=== PATIENT | male | born 1955 | race Caucasian/White ===

== ENCOUNTER → 2018-06-26 12:51 | Outpatient (CLI) | payer OTHER, SELFPAY ==
[2018-06-26 13:08] LABS: Abs Immature Grans 0.02 k/cumm (0.0-0.09); Absolute Basophil Count 0.03 k/cumm (0.0-0.2); Absolute Lymphocyte Count 1.34 k/cumm (1.2-3.4); Absolute Monocyte Count 0.72 k/cumm (0.11-0.7); Absolute Neutrophil Count 7.53 k/cumm (1.2-6.7); Basophils % 0.3; HCT 40.3 % (40.0-50.0); HGB 13.1 g/dL (13.5-17.5); Immature Grans % 0.2; Lymphocytes % 13.6; Mean Corp. HGB Concentration 32.5 g/dL (32.0-36.0); Mean Corpuscular Hemoglobin 27.1 pg (27.0-33.0); Mean Corpuscular Volume 83.3 fL (80-95); Monocytes % 7.3; Neutrophils % 76.6; Platelet Count 194 x1000/uL (130-400); RBC 4.84 m/cumm (4.50-6.00); RBC Distribution Width 16.3 % (11.8-14.1); White Blood Cell Count 9.84 k/cumm (4.4-10.8)
[2018-06-26 13:30] LABS: ALT 28 U/L (12-78); AST 15 U/L (15-37); Albumin 3.1 g/dL (3.4-5.0); Alkaline Phosphatase 69 U/L (46-116); Anion Gap 9.7 mmol/L (3-11); BUN 9 mg/dL (7-18); Bilirubin, Total 0.4 mg/dL (0.2-1.0); CO2 26.3 mmol/L (21.0-32.0); CREATININE 0.96 mg/dL (0.70-1.30); Calcium 8.7 mg/dL (8.5-10.1); Chloride 101 mmol/L (98-107); Glucose 115 mg/dL (70-100); Potassium 4.1 mmol/L (3.5-5.1); Sodium 137 mmol/L (136-145); T4 9.1 ug/dL (4.5-12.5); TSH 0.06 uIU/mL (0.358-3.74); Total Protein 7.3 g/dL (6.4-8.2)
== END ==
PROVIDERS: PCP Internal Medicine; Visit Provider Internal Medicine Medical Oncology
DX: E03.2 Hypothyroidism due to medicaments and other exogenous substances (principal)
CPT/HCPCS: 36415; 80053; 84436; 84443; 85025

== ENCOUNTER → 2018-07-10 12:17 | Outpatient (CLI) | payer OTHER, SELFPAY ==
[2018-07-10 12:50] LABS: Abs Immature Grans 0.02 k/cumm (0.0-0.09); Absolute Basophil Count 0.02 k/cumm (0.0-0.2); Absolute Eosinophil Count 0.21 k/cumm (0.0-0.7); Absolute Lymphocyte Count 1.48 k/cumm (1.2-3.4); Absolute Monocyte Count 0.83 k/cumm (0.11-0.7); Absolute Neutrophil Count 6.89 k/cumm (1.2-6.7); Basophils % 0.2; Eosinophils % 2.2; HGB 13.1 g/dL (13.5-17.5); Immature Grans % 0.2; Lymphocytes % 15.7; Mean Corpuscular Hemoglobin 26.3 pg (27.0-33.0); Mean Corpuscular Volume 82.3 fL (80-95); Mean Platelet Volume 9.4 fL (8.0-11.0); Monocytes % 8.8; Neutrophils % 72.9; Platelet Count 237 x1000/uL (130-400); RBC 4.98 m/cumm (4.50-6.00); White Blood Cell Count 9.45 k/cumm (4.4-10.8)
[2018-07-10 13:12] LABS: ALT 27 U/L (12-78); AST 16 U/L (15-37); Albumin 3.1 g/dL (3.4-5.0); Alkaline Phosphatase 68 U/L (46-116); Anion Gap 3.3 mmol/L (3-11); BUN 8 mg/dL (7-18); Bilirubin, Total 0.4 mg/dL (0.2-1.0); CO2 29.7 mmol/L (21.0-32.0); CREATININE 0.75 mg/dL (0.70-1.30); Calcium 8.6 mg/dL (8.5-10.1); Chloride 102 mmol/L (98-107); Glucose 120 mg/dL (70-100); Potassium 4.4 mmol/L (3.5-5.1); Sodium 135 mmol/L (136-145); TSH 0.05 uIU/mL (0.358-3.74); Total Protein 7.3 g/dL (6.4-8.2)
[2018-07-10 13:25] LABS: T4 9.2 ug/dL (4.5-12.5)
== END ==
PROVIDERS: PCP Internal Medicine; Visit Provider Internal Medicine Medical Oncology
DX: C34.02 Malignant neoplasm of left main bronchus (principal)
CPT/HCPCS: 36415; 80053; 84436; 84443; 85025

== ENCOUNTER 2018-07-24 08:46 | Outpatient (CLI) | payer OTHER, SELFPAY ==
[2018-07-24 09:51] LABS: Abs Immature Grans 0.03 k/cumm (0.0-0.09); Absolute Basophil Count 0.04 k/cumm (0.0-0.2); Absolute Eosinophil Count 0.17 k/cumm (0.0-0.7); Absolute Lymphocyte Count 1.26 k/cumm (1.2-3.4); Absolute Monocyte Count 0.73 k/cumm (0.11-0.7); Basophils % 0.4; Eosinophils % 1.7; HCT 41.7 % (40.0-50.0); HGB 13.6 g/dL (13.5-17.5); Immature Grans % 0.3; Lymphocytes % 12.3; Mean Corp. HGB Concentration 32.6 g/dL (32.0-36.0); Mean Corpuscular Hemoglobin 26.3 pg (27.0-33.0); Mean Corpuscular Volume 80.7 fL (80-95); Mean Platelet Volume 9.4 fL (8.0-11.0); Monocytes % 7.1; Neutrophils % 78.2; Platelet Count 206 x1000/uL (130-400); RBC 5.17 m/cumm (4.50-6.00); RBC Distribution Width 16.7 % (11.8-14.1); White Blood Cell Count 10.23 k/cumm (4.4-10.8)
[2018-07-24 10:25] LABS: ALT 26 U/L (12-78); AST 18 U/L (15-37); Albumin 3.2 g/dL (3.4-5.0); Alkaline Phosphatase 67 U/L (46-116); Anion Gap 6.4 mmol/L (3-11); BUN 7 mg/dL (7-18); Bilirubin, Total 0.4 mg/dL (0.2-1.0); CO2 28.6 mmol/L (21.0-32.0); CREATININE 0.91 mg/dL (0.70-1.30); Calcium 8.6 mg/dL (8.5-10.1); Chloride 99 mmol/L (98-107); Glucose 183 mg/dL (70-100); Potassium 4.1 mmol/L (3.5-5.1); Sodium 134 mmol/L (136-145); T4 7.9 ug/dL (4.5-12.5); TSH 0.16 uIU/mL (0.358-3.74); Total Protein 7.1 g/dL (6.4-8.2)
== END 2018-07-24 09:06 ==
PROVIDERS: PCP Internal Medicine; Visit Provider Internal Medicine Medical Oncology
DX: C34.92 Malignant neoplasm of unspecified part of left bronchus or lung (principal)
CPT/HCPCS: 36415; 80053; 84436; 84443; 85025

== ENCOUNTER 2018-08-07 11:16 | Outpatient (CLI) | payer OTHER, SELFPAY ==
[2018-08-07 12:08] LABS: Abs Immature Grans 0.01 k/cumm (0.0-0.09); Absolute Basophil Count 0.03 k/cumm (0.0-0.2); Absolute Eosinophil Count 0.26 k/cumm (0.0-0.7); Absolute Monocyte Count 0.85 k/cumm (0.11-0.7); Basophils % 0.3; Eosinophils % 2.3; HCT 39.3 % (40.0-50.0); HGB 12.8 g/dL (13.5-17.5); Immature Grans % 0.1; Lymphocytes % 10.5; Mean Corp. HGB Concentration 32.6 g/dL (32.0-36.0); Mean Corpuscular Hemoglobin 26.2 pg (27.0-33.0); Mean Corpuscular Volume 80.4 fL (80-95); Mean Platelet Volume 9.7 fL (8.0-11.0); Monocytes % 7.4; Neutrophils % 79.4; Platelet Count 204 x1000/uL (130-400); RBC 4.89 m/cumm (4.50-6.00); RBC Distribution Width 16.9 % (11.8-14.1); White Blood Cell Count 11.47 k/cumm (4.4-10.8)
[2018-08-07 12:09] LABS: Absolute Neutrophil Count 9.11 k/cumm (1.2-6.7)
[2018-08-07 12:33] LABS: ALT 27 U/L (12-78); AST 21 U/L (15-37); Albumin 3.2 g/dL (3.4-5.0); Alkaline Phosphatase 62 U/L (46-116); Anion Gap 8.5 mmol/L (3-11); BUN 8 mg/dL (7-18); Bilirubin, Total 0.5 mg/dL (0.2-1.0); CO2 29.5 mmol/L (21.0-32.0); CREATININE 0.88 mg/dL (0.70-1.30); Calcium 9.2 mg/dL (8.5-10.1); Chloride 97 mmol/L (98-107); Glucose 184 mg/dL (70-100); Potassium 4.2 mmol/L (3.5-5.1); Sodium 135 mmol/L (136-145); T4 7.8 ug/dL (4.5-12.5); TSH 0.22 uIU/mL (0.358-3.74); Total Protein 7.1 g/dL (6.4-8.2)
== END 2018-08-07 11:36 ==
PROVIDERS: PCP Internal Medicine; Visit Provider Internal Medicine Medical Oncology
DX: C34.02 Malignant neoplasm of left main bronchus (principal); E03.2 Hypothyroidism due to medicaments and other exogenous substances
CPT/HCPCS: 36415; 80053; 84436; 84443; 85025

== ENCOUNTER 2018-09-18 01:13 | Outpatient (RCR) | payer OTHER, SELFPAY ==
[2018-08-20] MEDS: Normal Saline Flush 10 ML SYR IVP (08:10)
[2018-08-20 08:30] LABS: Abs Immature Grans 0.01 k/cumm (0.0-0.09); Absolute Basophil Count 0.04 k/cumm (0.0-0.2); Absolute Eosinophil Count 0.21 k/cumm (0.0-0.7); Absolute Monocyte Count 0.69 k/cumm (0.11-0.7); Absolute Neutrophil Count 7.41 k/cumm (1.2-6.7); Basophils % 0.4; Eosinophils % 2.2; HCT 39.8 % (40.0-50.0); HGB 12.8 g/dL (13.5-17.5); Immature Grans % 0.1; Lymphocytes % 13.5; Mean Corp. HGB Concentration 32.2 g/dL (32.0-36.0); Mean Corpuscular Volume 80.7 fL (80-95); Mean Platelet Volume 9.6 fL (8.0-11.0); Monocytes % 7.1; Neutrophils % 76.7; Platelet Count 230 x1000/uL (130-400); RBC 4.93 m/cumm (4.50-6.00); RBC Distribution Width 17.9 % (11.8-14.1); White Blood Cell Count 9.66 k/cumm (4.4-10.8)
[2018-08-20 08:49] LABS: ALT 25 U/L (12-78); AST 18 U/L (15-37); Albumin 3.2 g/dL (3.4-5.0); Alkaline Phosphatase 67 U/L (46-116); Anion Gap 6.9 mmol/L (3-11); BUN 10 mg/dL (7-18); Bilirubin, Total 0.3 mg/dL (0.2-1.0); CO2 29.1 mmol/L (21.0-32.0); CREATININE 0.86 mg/dL (0.70-1.30); Calcium 8.2 mg/dL (8.5-10.1); Chloride 101 mmol/L (98-107); Glucose 133 mg/dL (70-100); Potassium 4.2 mmol/L (3.5-5.1); Sodium 137 mmol/L (136-145); T4 8.9 ug/dL (4.5-12.5); TSH 0.38 uIU/mL (0.358-3.74); Total Protein 7.1 g/dL (6.4-8.2)
[2018-09-03] MEDS: Normal Saline Flush 10 ML SYR IVP (08:50)
[2018-09-03 09:09] LABS: Abs Immature Grans 0.02 k/cumm (0.0-0.09); Absolute Basophil Count 0.04 k/cumm (0.0-0.2); Absolute Eosinophil Count 0.45 k/cumm (0.0-0.7); Absolute Lymphocyte Count 1.12 k/cumm (1.2-3.4); Absolute Monocyte Count 0.72 k/cumm (0.11-0.7); Absolute Neutrophil Count 6.53 k/cumm (1.2-6.7); Basophils % 0.5; Eosinophils % 5.1; HCT 38.2 % (40.0-50.0); HGB 12.3 g/dL (13.5-17.5); Immature Grans % 0.2; Lymphocytes % 12.6; Mean Corp. HGB Concentration 32.2 g/dL (32.0-36.0); Mean Corpuscular Hemoglobin 26.1 pg (27.0-33.0); Mean Corpuscular Volume 80.9 fL (80-95); Mean Platelet Volume 9.2 fL (8.0-11.0); Monocytes % 8.1; Neutrophils % 73.5; Platelet Count 231 x1000/uL (130-400); RBC 4.72 m/cumm (4.50-6.00); RBC Distribution Width 18.7 % (11.8-14.1); White Blood Cell Count 8.88 k/cumm (4.4-10.8)
[2018-09-03 09:34] LABS: ALT 29 U/L (12-78); AST 17 U/L (15-37); Albumin 3.1 g/dL (3.4-5.0); Alkaline Phosphatase 68 U/L (46-116); Anion Gap 7.3 mmol/L (3-11); BUN 10 mg/dL (7-18); Bilirubin, Total 0.2 mg/dL (0.2-1.0); CO2 30.7 mmol/L (21.0-32.0); CREATININE 0.88 mg/dL (0.70-1.30); Calcium 8.5 mg/dL (8.5-10.1); Chloride 103 mmol/L (98-107); Glucose 130 mg/dL (70-100); Potassium 4.2 mmol/L (3.5-5.1); Sodium 141 mmol/L (136-145); T4 9.4 ug/dL (4.5-12.5); TSH 1.48 uIU/mL (0.358-3.74)
[2018-09-18] MEDS: Normal Saline Flush 10 ML SYR IVP (12:48)
[2018-09-18 13:02] LABS: Abs Immature Grans 0.03 k/cumm (0.0-0.09); HCT 36.7 % (40.0-50.0); HGB 11.6 g/dL (13.5-17.5); Mean Corp. HGB Concentration 31.6 g/dL (32.0-36.0); Mean Corpuscular Hemoglobin 25.3 pg (27.0-33.0); Mean Platelet Volume 9.7 fL (8.0-11.0); Platelet Count 249 x1000/uL (130-400); RBC 4.59 m/cumm (4.50-6.00); RBC Distribution Width 19.3 % (11.8-14.1)
[2018-09-18 13:27] LABS: Absolute Eosinophil Count 1.45 k/cumm (0.0-0.7); Absolute Lymphocyte Count 1.21 k/cumm (1.2-3.4); Absolute Monocyte Count 0.85 k/cumm (0.11-0.7); Absolute Neutrophil Count 8.59 k/cumm (1.2-6.7)
[2018-09-18 13:28] LABS: ALT 44 U/L (12-78); AST 30 U/L (15-37); Albumin 2.9 g/dL (3.4-5.0); Alkaline Phosphatase 65 U/L (46-116); Anion Gap 7.4 mmol/L (3-11); BUN 10 mg/dL (7-18); Bilirubin, Total 0.3 mg/dL (0.2-1.0); CO2 29.6 mmol/L (21.0-32.0); CREATININE 0.97 mg/dL (0.70-1.30); Calcium 8.6 mg/dL (8.5-10.1); Chloride 100 mmol/L (98-107); Glucose 126 mg/dL (70-100); Potassium 4.2 mmol/L (3.5-5.1); Sodium 137 mmol/L (136-145); TSH 0.68 uIU/mL (0.358-3.74); Total Protein 7.1 g/dL (6.4-8.2)
[2018-09-18 13:31] LABS: Anisocytosis 2+; Diff Comment Manual Differential; Hypochromasia 1+; Polychromasia Present
[2018-09-18 13:39] LABS: T4 9.3 ug/dL (4.5-12.5)
== END 2018-09-19 23:59 | disposition home or self-care (01) ==
LOC: INF 01:13
PROVIDERS: PCP Internal Medicine; Visit Provider Internal Medicine Medical Oncology
DX: C34.02 Malignant neoplasm of left main bronchus (principal); E03.2 Hypothyroidism due to medicaments and other exogenous substances; Z45.2 Encounter for adjustment and management of vascular access device
CPT/HCPCS: 36591; 80053; 84436; 84443; 85025

== ENCOUNTER 2018-10-18 02:06 | Outpatient (RCR) | payer OTHER, SELFPAY ==
[2018-10-01] MEDS: Normal Saline Flush 10 ML SYR IVP (12:10)
[2018-10-01 12:27] LABS: Abs Immature Grans 0.01 k/cumm (0.0-0.09); Absolute Basophil Count 0.04 k/cumm (0.0-0.2); Absolute Eosinophil Count 0.79 k/cumm (0.0-0.7); Absolute Lymphocyte Count 1.39 k/cumm (1.2-3.4); Absolute Monocyte Count 0.77 k/cumm (0.11-0.7); Basophils % 0.5; Eosinophils % 9.4; HCT 36.6 % (40.0-50.0); HGB 11.6 g/dL (13.5-17.5); Immature Grans % 0.1; Lymphocytes % 16.5; Mean Corp. HGB Concentration 31.7 g/dL (32.0-36.0); Mean Corpuscular Hemoglobin 25.3 pg (27.0-33.0); Mean Corpuscular Volume 79.7 fL (80-95); Mean Platelet Volume 9.3 fL (8.0-11.0); Monocytes % 9.2; Neutrophils % 64.3; Platelet Count 273 x1000/uL (130-400); RBC 4.59 m/cumm (4.50-6.00)
[2018-10-01 12:42] LABS: ALT 57 U/L (12-78); AST 30 U/L (15-37); Albumin 3.1 g/dL (3.4-5.0); Alkaline Phosphatase 69 U/L (46-116); BUN 11 mg/dL (7-18); Bilirubin, Total 0.3 mg/dL (0.2-1.0); CREATININE 0.87 mg/dL (0.70-1.30); Calcium 8.5 mg/dL (8.5-10.1); Chloride 99 mmol/L (98-107); Glucose 131 mg/dL (70-100); Potassium 4.1 mmol/L (3.5-5.1); Sodium 136 mmol/L (136-145); Total Protein 7.2 g/dL (6.4-8.2)
[2018-10-01 13:50] LABS: TSH 0.92 uIU/mL (0.358-3.74)
[2018-10-18] MEDS: Normal Saline Flush 10 ML SYR IVP (11:30)
[2018-10-18 12:04] LABS: Abs Immature Grans 0.01 k/cumm (0.0-0.09); Absolute Basophil Count 0.03 k/cumm (0.0-0.2); Absolute Eosinophil Count 0.13 k/cumm (0.0-0.7); Absolute Lymphocyte Count 1.14 k/cumm (1.2-3.4); Absolute Monocyte Count 0.72 k/cumm (0.11-0.7); Absolute Neutrophil Count 5.42 k/cumm (1.2-6.7); Basophils % 0.4; Eosinophils % 1.7; HCT 35.1 % (40.0-50.0); Immature Grans % 0.1; Lymphocytes % 15.3; Mean Corp. HGB Concentration 31.3 g/dL (32.0-36.0); Mean Corpuscular Hemoglobin 24.6 pg (27.0-33.0); Mean Corpuscular Volume 78.3 fL (80-95); Mean Platelet Volume 9.6 fL (8.0-11.0); Monocytes % 9.7; Neutrophils % 72.8; Platelet Count 210 x1000/uL (130-400); RBC 4.48 m/cumm (4.50-6.00); RBC Distribution Width 18.5 % (11.8-14.1); White Blood Cell Count 7.45 k/cumm (4.4-10.8)
[2018-10-18 12:18] LABS: ALT 85 U/L (12-78); AST 46 U/L (15-37); Albumin 3.2 g/dL (3.4-5.0); Alkaline Phosphatase 77 U/L (46-116); Anion Gap 8.4 mmol/L (3-11); BUN 10 mg/dL (7-18); Bilirubin, Total 0.3 mg/dL (0.2-1.0); CO2 27.6 mmol/L (21.0-32.0); CREATININE 1.04 mg/dL (0.70-1.30); Calcium 8.7 mg/dL (8.5-10.1); Chloride 97 mmol/L (98-107); FREE T4 1.56 ng/dL (0.76-1.46); Glucose 111 mg/dL (70-100); Potassium 4.1 mmol/L (3.5-5.1); Sodium 133 mmol/L (136-145); TSH 0.92 uIU/mL (0.358-3.74); Total Protein 7.4 g/dL (6.4-8.2)
== END 2018-10-19 23:59 | disposition home or self-care (01) ==
LOC: INF 02:06
PROVIDERS: Nurse Practitioner Adult Health; PCP Internal Medicine; Visit Provider Internal Medicine Medical Oncology
DX: C34.02 Malignant neoplasm of left main bronchus (principal); E03.2 Hypothyroidism due to medicaments and other exogenous substances; Z79.899 Other long term (current) drug therapy; Z45.2 Encounter for adjustment and management of vascular access device
CPT/HCPCS: 36591; 80053; 84436; 84439; 84443; 85025

== ENCOUNTER 2018-11-15 02:05 | Outpatient (RCR) | payer OTHER, SELFPAY ==
[2018-11-01] MEDS: Normal Saline Flush 10 ML SYR IVP (11:49)
[2018-11-01 11:57] LABS: Abs Immature Grans 0.02 k/cumm (0.0-0.09); Absolute Basophil Count 0.04 k/cumm (0.0-0.2); Absolute Lymphocyte Count 1.14 k/cumm (1.2-3.4); Absolute Monocyte Count 1.02 k/cumm (0.11-0.7); Basophils % 0.5; Eosinophils % 2.3; HGB 10.9 g/dL (13.5-17.5); Immature Grans % 0.2; Lymphocytes % 13.2; Mean Corp. HGB Concentration 31.1 g/dL (32.0-36.0); Mean Corpuscular Hemoglobin 24.1 pg (27.0-33.0); Mean Corpuscular Volume 77.3 fL (80-95); Mean Platelet Volume 9.2 fL (8.0-11.0); Monocytes % 11.8; Platelet Count 255 x1000/uL (130-400); RBC 4.53 m/cumm (4.50-6.00); White Blood Cell Count 8.62 k/cumm (4.4-10.8)
[2018-11-01 12:20] LABS: ALT 105 U/L (12-78); AST 44 U/L (15-37); Albumin 3.1 g/dL (3.4-5.0); Alkaline Phosphatase 75 U/L (46-116); Anion Gap 8.7 mmol/L (3-11); BUN 13 mg/dL (7-18); Bilirubin, Total 0.3 mg/dL (0.2-1.0); CO2 29.3 mmol/L (21.0-32.0); CREATININE 0.95 mg/dL (0.70-1.30); Calcium 8.6 mg/dL (8.5-10.1); Chloride 100 mmol/L (98-107); FREE T4 1.44 ng/dL (0.76-1.46); Glucose 107 mg/dL (70-100); Potassium 4.2 mmol/L (3.5-5.1); Sodium 138 mmol/L (136-145); TSH 1.01 uIU/mL (0.358-3.74); Total Protein 7.4 g/dL (6.4-8.2)
[2018-11-15] MEDS: Normal Saline Flush 10 ML SYR IVP (10:30)
[2018-11-15 10:42] LABS: Abs Immature Grans 0.02 k/cumm (0.0-0.09); Absolute Basophil Count 0.04 k/cumm (0.0-0.2); Absolute Eosinophil Count 0.31 k/cumm (0.0-0.7); Absolute Lymphocyte Count 1.11 k/cumm (1.2-3.4); Absolute Monocyte Count 0.78 k/cumm (0.11-0.7); Absolute Neutrophil Count 6.19 k/cumm (1.2-6.7); Basophils % 0.5; Eosinophils % 3.7; HCT 33.7 % (40.0-50.0); HGB 10.3 g/dL (13.5-17.5); Immature Grans % 0.2; Lymphocytes % 13.1; Mean Corp. HGB Concentration 30.6 g/dL (32.0-36.0); Mean Corpuscular Hemoglobin 23.7 pg (27.0-33.0); Mean Corpuscular Volume 77.5 fL (80-95); Mean Platelet Volume 9.4 fL (8.0-11.0); Monocytes % 9.2; Neutrophils % 73.3; Platelet Count 238 x1000/uL (130-400); RBC 4.35 m/cumm (4.50-6.00); White Blood Cell Count 8.45 k/cumm (4.4-10.8)
[2018-11-15 11:08] LABS: ALT 64 U/L (12-78); AST 36 U/L (15-37); Alkaline Phosphatase 73 U/L (46-116); BUN 15 mg/dL (7-18); Bilirubin, Total 0.3 mg/dL (0.2-1.0); CREATININE 1.04 mg/dL (0.70-1.30); Calcium 8.5 mg/dL (8.5-10.1); Chloride 99 mmol/L (98-107); FREE T4 1.34 ng/dL (0.76-1.46); Glucose 208 mg/dL (70-100); Potassium 4.3 mmol/L (3.5-5.1); Sodium 135 mmol/L (136-145); TSH 3.06 uIU/mL (0.358-3.74); Total Protein 7.3 g/dL (6.4-8.2)
== END 2018-11-19 23:59 | disposition home or self-care (01) ==
LOC: INF 02:05
PROVIDERS: PCP Internal Medicine; Visit Provider Nurse Practitioner Adult Health
DX: C34.02 Malignant neoplasm of left main bronchus (principal); Z79.899 Other long term (current) drug therapy; E03.2 Hypothyroidism due to medicaments and other exogenous substances; Z45.2 Encounter for adjustment and management of vascular access device
CPT/HCPCS: 36591; 80053; 84439; 84443; 85025

== ENCOUNTER 2018-12-13 00:52 | Outpatient (RCR) | payer OTHER, SELFPAY ==
[2018-11-29] MEDS: Normal Saline Flush 10 ML SYR IVP (12:31)
[2018-11-29 12:48] LABS: Abs Immature Grans 0.02 k/cumm (0.0-0.09); Absolute Basophil Count 0.04 k/cumm (0.0-0.2); Absolute Lymphocyte Count 0.89 k/cumm (1.2-3.4); Absolute Neutrophil Count 7.11 k/cumm (1.2-6.7); Basophils % 0.4; Eosinophils % 2.2; HCT 33.5 % (40.0-50.0); HGB 10.3 g/dL (13.5-17.5); Immature Grans % 0.2; Lymphocytes % 9.7; Mean Corp. HGB Concentration 30.7 g/dL (32.0-36.0); Mean Corpuscular Hemoglobin 23.2 pg (27.0-33.0); Mean Corpuscular Volume 75.5 fL (80-95); Mean Platelet Volume 9.4 fL (8.0-11.0); Monocytes % 9.8; Neutrophils % 77.7; Platelet Count 299 x1000/uL (130-400); RBC 4.44 m/cumm (4.50-6.00); RBC Distribution Width 17.8 % (11.8-14.1); White Blood Cell Count 9.16 k/cumm (4.4-10.8)
[2018-11-29 13:07] LABS: ALT 68 U/L (12-78); AST 38 U/L (15-37); Albumin 3.1 g/dL (3.4-5.0); Alkaline Phosphatase 73 U/L (46-116); Anion Gap 8.6 mmol/L (3-11); BUN 11 mg/dL (7-18); Bilirubin, Total 0.4 mg/dL (0.2-1.0); CO2 29.4 mmol/L (21.0-32.0); Calcium 8.8 mg/dL (8.5-10.1); Chloride 99 mmol/L (98-107); Glucose 139 mg/dL (70-100); Sodium 137 mmol/L (136-145); T4 10.5 ug/dL (4.5-12.5); TSH 1.25 uIU/mL (0.358-3.74); Total Protein 7.6 g/dL (6.4-8.2)
== END 2018-12-20 23:59 | disposition home or self-care (01) ==
LOC: INF 00:52
PROVIDERS: PCP Internal Medicine; Visit Provider Nurse Practitioner Adult Health
DX: C34.02 Malignant neoplasm of left main bronchus (principal); Z79.899 Other long term (current) drug therapy; E03.2 Hypothyroidism due to medicaments and other exogenous substances; Z45.2 Encounter for adjustment and management of vascular access device
CPT/HCPCS: 36591; 80053; 84436; 84443; 85025

== ENCOUNTER 2018-12-27 02:06 | Outpatient (RCR) | payer OTHER, SELFPAY ==
[2018-12-27] MEDS: Normal Saline Flush 10 ML SYR IVP (09:25)
[2018-12-27 09:51] LABS: Abs Immature Grans 0.02 k/cumm (0.0-0.09); Absolute Basophil Count 0.05 k/cumm (0.0-0.2); Absolute Eosinophil Count 0.22 k/cumm (0.0-0.7); Absolute Lymphocyte Count 0.85 k/cumm (1.2-3.4); Absolute Monocyte Count 0.87 k/cumm (0.11-0.7); Absolute Neutrophil Count 7.49 k/cumm (1.2-6.7); Basophils % 0.5; Eosinophils % 2.3; HCT 31.6 % (40.0-50.0); HGB 9.6 g/dL (13.5-17.5); Immature Grans % 0.2; Lymphocytes % 8.9; Mean Corp. HGB Concentration 30.4 g/dL (32.0-36.0); Mean Corpuscular Hemoglobin 21.9 pg (27.0-33.0); Mean Corpuscular Volume 72.1 fL (80-95); Mean Platelet Volume 9.2 fL (8.0-11.0); Monocytes % 9.2; Neutrophils % 78.9; Platelet Count 267 x1000/uL (130-400); RBC 4.38 m/cumm (4.50-6.00); RBC Distribution Width 18.1 % (11.8-14.1)
[2018-12-27 10:09] LABS: Diff Comment RBC Morph Reviewed; Hypochromasia 3+; Microcytosis 3+; Poikilocytes 1+
[2018-12-27 10:14] LABS: ALT 95 U/L (12-78); AST 66 U/L (15-37); Alkaline Phosphatase 79 U/L (46-116); Anion Gap 7.8 mmol/L (3-11); BUN 8 mg/dL (7-18); Bilirubin, Total 0.3 mg/dL (0.2-1.0); CO2 28.2 mmol/L (21.0-32.0); CREATININE 1.05 mg/dL (0.70-1.30); Calcium 8.5 mg/dL (8.5-10.1); Chloride 102 mmol/L (98-107); FREE T4 1.46 ng/dL (0.76-1.46); Glucose 114 mg/dL (70-100); Potassium 4.2 mmol/L (3.5-5.1); Sodium 138 mmol/L (136-145); TSH 2.09 uIU/mL (0.358-3.74); Total Protein 7.4 g/dL (6.4-8.2)
== END 2019-01-17 23:59 | disposition home or self-care (01) ==
LOC: INF 02:06
PROVIDERS: PCP Internal Medicine; Visit Provider Nurse Practitioner Adult Health
DX: C34.02 Malignant neoplasm of left main bronchus (principal); Z79.899 Other long term (current) drug therapy; Z45.2 Encounter for adjustment and management of vascular access device
CPT/HCPCS: 36591; 80053; 84439; 84443; 85025

== ENCOUNTER 2019-01-24 01:32 | Outpatient (RCR) | payer OTHER, SELFPAY ==
[2019-01-24] MEDS: Normal Saline Flush 10 ML SYR IVP (10:25)
[2019-01-24 10:49] LABS: Abs Immature Grans 0.02 k/cumm (0.0-0.09); Absolute Basophil Count 0.04 k/cumm (0.0-0.2); Absolute Eosinophil Count 0.16 k/cumm (0.0-0.7); Absolute Lymphocyte Count 1.12 k/cumm (1.2-3.4); Absolute Monocyte Count 0.78 k/cumm (0.11-0.7); Absolute Neutrophil Count 7.17 k/cumm (1.2-6.7); Basophils % 0.4; Eosinophils % 1.7; HCT 29.9 % (40.0-50.0); HGB 8.8 g/dL (13.5-17.5); Immature Grans % 0.2; Lymphocytes % 12.1; Mean Corp. HGB Concentration 29.4 g/dL (32.0-36.0); Mean Corpuscular Hemoglobin 20.7 pg (27.0-33.0); Mean Corpuscular Volume 70.4 fL (80-95); Mean Platelet Volume 9.2 fL (8.0-11.0); Monocytes % 8.4; Neutrophils % 77.2; Platelet Count 223 x1000/uL (130-400); RBC 4.25 m/cumm (4.50-6.00); RBC Distribution Width 19.6 % (11.8-14.1); White Blood Cell Count 9.29 k/cumm (4.4-10.8)
[2019-01-24 11:05] LABS: Diff Comment RBC Morph Reviewed; Hypochromasia 3+; Microcytosis 3+
[2019-01-24 11:06] LABS: ALT 46 U/L (12-78); AST 37 U/L (15-37); Albumin 2.7 g/dL (3.4-5.0); Alkaline Phosphatase 68 U/L (46-116); Anion Gap 7.5 mmol/L (3-11); BUN 7 mg/dL (7-18); Bilirubin, Total 0.4 mg/dL (0.2-1.0); CO2 29.5 mmol/L (21.0-32.0); CREATININE 0.84 mg/dL (0.70-1.30); Calcium 8.2 mg/dL (8.5-10.1); Chloride 101 mmol/L (98-107); FREE T4 0.96 ng/dL (0.76-1.46); Glucose 128 mg/dL (70-100); Potassium 3.7 mmol/L (3.5-5.1); Sodium 138 mmol/L (136-145); TSH 8.97 uIU/mL (0.358-3.74); Total Protein 6.8 g/dL (6.4-8.2)
== END 2019-02-17 23:59 | disposition home or self-care (01) ==
LOC: INF 01:32
PROVIDERS: PCP Internal Medicine; Visit Provider Nurse Practitioner Adult Health
DX: C34.02 Malignant neoplasm of left main bronchus (principal); Z79.899 Other long term (current) drug therapy; Z45.2 Encounter for adjustment and management of vascular access device
CPT/HCPCS: 36591; 80053; 84439; 84443; 85025

== ENCOUNTER 2019-03-14 02:20 | Outpatient (RCR) | payer OTHER, SELFPAY ==
[2019-03-07] MEDS: Normal Saline Flush 10 ML SYR IVP (08:40)
[2019-03-07 09:10] LABS: Abs Immature Grans 0.02 k/cumm (0.0-0.09); Absolute Basophil Count 0.05 k/cumm (0.0-0.2); Absolute Eosinophil Count 0.14 k/cumm (0.0-0.7); Absolute Lymphocyte Count 1.26 k/cumm (1.2-3.4); Absolute Monocyte Count 1.16 k/cumm (0.11-0.7); Absolute Neutrophil Count 7.14 k/cumm (1.2-6.7); Basophils % 0.5; Eosinophils % 1.4; HCT 29.7 % (40.0-50.0); HGB 8.7 g/dL (13.5-17.5); Immature Grans % 0.2; Lymphocytes % 12.9; Mean Corp. HGB Concentration 29.3 g/dL (32.0-36.0); Mean Corpuscular Hemoglobin 20.4 pg (27.0-33.0); Mean Corpuscular Volume 69.6 fL (80-95); Mean Platelet Volume 9.2 fL (8.0-11.0); Monocytes % 11.9; Neutrophils % 73.1; Platelet Count 260 x1000/uL (130-400); RBC 4.27 m/cumm (4.50-6.00); RBC Distribution Width 21.3 % (11.8-14.1); White Blood Cell Count 9.77 k/cumm (4.4-10.8)
[2019-03-07 09:33] LABS: ALT 40 U/L (12-78); AST 34 U/L (15-37); Albumin 2.9 g/dL (3.4-5.0); Alkaline Phosphatase 83 U/L (46-116); Anion Gap 8.9 mmol/L (3-11); BUN 6 mg/dL (7-18); Bilirubin, Total 0.4 mg/dL (0.2-1.0); CO2 28.1 mmol/L (21.0-32.0); CREATININE 0.94 mg/dL (0.70-1.30); Calcium 8.4 mg/dL (8.5-10.1); Chloride 101 mmol/L (98-107); Glucose 125 mg/dL (70-100); Potassium 3.9 mmol/L (3.5-5.1); Sodium 138 mmol/L (136-145); Total Protein 7.6 g/dL (6.4-8.2)
[2019-03-14] MEDS: Normal Saline Flush 10 ML SYR IVP (13:10)
[2019-03-14 13:41] LABS: Abs Immature Grans 0.03 k/cumm (0.0-0.09); Absolute Basophil Count 0.06 k/cumm (0.0-0.2); Absolute Eosinophil Count 0.06 k/cumm (0.0-0.7); Absolute Lymphocyte Count 0.69 k/cumm (1.2-3.4); Absolute Monocyte Count 0.21 k/cumm (0.11-0.7); Absolute Neutrophil Count 2.65 k/cumm (1.2-6.7); Basophils % 1.6; Eosinophils % 1.6; HGB 7.3 g/dL (13.5-17.5); Immature Grans % 0.8; Lymphocytes % 18.6; Mean Corp. HGB Concentration 29.2 g/dL (32.0-36.0); Mean Corpuscular Hemoglobin 20.1 pg (27.0-33.0); Mean Corpuscular Volume 68.9 fL (80-95); Mean Platelet Volume 9.8 fL (8.0-11.0); Monocytes % 5.7; Neutrophils % 71.7; Platelet Count 144 x1000/uL (130-400); RBC 3.63 m/cumm (4.50-6.00); RBC Distribution Width 20.3 % (11.8-14.1)
[2019-03-14 14:04] LABS: Anisocytosis 2+; Diff Comment RBC Morph Reviewed
[2019-03-14 14:05] LABS: Hypochromasia 2+; Microcytosis 3+; Poikilocytes 1+; Polychromasia Present
[2019-03-14 14:16] LABS: ALT 72 U/L (12-78); AST 57 U/L (15-37); Albumin 2.9 g/dL (3.4-5.0); Alkaline Phosphatase 75 U/L (46-116); Anion Gap 7.8 mmol/L (3-11); BUN 11 mg/dL (7-18); Bilirubin, Total 0.3 mg/dL (0.2-1.0); CO2 26.2 mmol/L (21.0-32.0); CREATININE 1.03 mg/dL (0.70-1.30); Calcium 8.1 mg/dL (8.5-10.1); Chloride 99 mmol/L (98-107); Glucose 121 mg/dL (70-100); Potassium 3.7 mmol/L (3.5-5.1); Sodium 133 mmol/L (136-145)
== END 2019-03-19 23:59 | disposition home or self-care (01) ==
LOC: INF 02:20
PROVIDERS: PCP Internal Medicine; Visit Provider Nurse Practitioner Adult Health
DX: C34.02 Malignant neoplasm of left main bronchus (principal); Z79.899 Other long term (current) drug therapy; Z45.2 Encounter for adjustment and management of vascular access device
CPT/HCPCS: 36591; 80053; 85025

== ENCOUNTER 2019-04-18 01:55 | Outpatient (RCR) | payer OTHER, SELFPAY ==
[2019-03-21] MEDS: Normal Saline Flush 10 ML SYR IVP (12:15)
[2019-03-21 12:38] LABS: Abs Immature Grans 0.02 k/cumm (0.0-0.09); Absolute Basophil Count 0.01 k/cumm (0.0-0.2); Absolute Eosinophil Count 0.01 k/cumm (0.0-0.7); HCT 26.5 % (40.0-50.0); HGB 7.6 g/dL (13.5-17.5); Mean Corp. HGB Concentration 28.7 g/dL (32.0-36.0); Mean Corpuscular Hemoglobin 20.1 pg (27.0-33.0); Mean Corpuscular Volume 70.1 fL (80-95); Mean Platelet Volume 9.1 fL (8.0-11.0); Platelet Count 139 x1000/uL (130-400); RBC 3.78 m/cumm (4.50-6.00); RBC Distribution Width 22.2 % (11.8-14.1)
[2019-03-21 12:59] LABS: ALT 113 U/L (12-78); AST 70 U/L (15-37); Albumin 2.8 g/dL (3.4-5.0); Alkaline Phosphatase 64 U/L (46-116); BUN 9 mg/dL (7-18); Bilirubin, Total 0.4 mg/dL (0.2-1.0); CREATININE 0.95 mg/dL (0.70-1.30); Calcium 8.7 mg/dL (8.5-10.1); Chloride 99 mmol/L (98-107); Glucose 159 mg/dL (70-100); Potassium 3.7 mmol/L (3.5-5.1); Sodium 136 mmol/L (136-145); T4 9.6 ug/dL (4.5-12.5); TSH 3.74 uIU/mL (0.358-3.74); Total Protein 6.9 g/dL (6.4-8.2)
[2019-03-21 13:14] LABS: Absolute Lymphocyte Count 0.23 k/cumm (1.2-3.4); Absolute Monocyte Count 0.09 k/cumm (0.11-0.7); Absolute Neutrophil Count 0.96 k/cumm (1.2-6.7); White Blood Cell Count 1.33 k/cumm (4.4-10.8)
[2019-03-21 13:16] LABS: Anisocytosis 2+; Diff Comment Manual Differential; Hypochromasia 3+; Macrocytosis 1+; Microcytosis 2+; Nucleated RBC 2 /100WBC
[2019-03-22 16:18] LABS: Poikilocytes 1+
[2019-03-28 09:00] LABS: Abs Immature Grans 0.05 k/cumm (0.0-0.09); Absolute Basophil Count 0.02 k/cumm (0.0-0.2); Absolute Eosinophil Count 0.14 k/cumm (0.0-0.7); Absolute Lymphocyte Count 1.05 k/cumm (1.2-3.4); Absolute Monocyte Count 0.92 k/cumm (0.11-0.7); Absolute Neutrophil Count 2.78 k/cumm (1.2-6.7); Basophils % 0.4; Eosinophils % 2.8; HCT 34.3 % (40.0-50.0); HGB 9.9 g/dL (13.5-17.5); Lymphocytes % 21.2; Mean Corp. HGB Concentration 28.9 g/dL (32.0-36.0); Mean Corpuscular Hemoglobin 21.2 pg (27.0-33.0); Mean Corpuscular Volume 73.6 fL (80-95); Monocytes % 18.5; Neutrophils % 56.1; Platelet Count 170 x1000/uL (130-400); RBC 4.66 m/cumm (4.50-6.00); RBC Distribution Width 26.2 % (11.8-14.1); White Blood Cell Count 4.96 k/cumm (4.4-10.8)
[2019-03-28 09:10] LABS: ALT 121 U/L (12-78); AST 51 U/L (15-37); Albumin 2.8 g/dL (3.4-5.0); Alkaline Phosphatase 68 U/L (46-116); Anion Gap 4.6 mmol/L (3-11); BUN 16 mg/dL (7-18); Bilirubin, Total 0.3 mg/dL (0.2-1.0); CO2 31.4 mmol/L (21.0-32.0); CREATININE 0.93 mg/dL (0.70-1.30); Calcium 8.6 mg/dL (8.5-10.1); Chloride 100 mmol/L (98-107); Glucose 115 mg/dL (70-100); Potassium 3.8 mmol/L (3.5-5.1); Sodium 136 mmol/L (136-145); Total Protein 6.8 g/dL (6.4-8.2)
[2019-03-28] MEDS: Normal Saline Flush 10 ML SYR IVP (09:15)
[2019-03-28 09:29] LABS: Anisocytosis 3+; Diff Comment RBC Morph Reviewed; Hypochromasia 3+; Microcytosis 3+; Ovalocytes 2+; Poikilocytes 2+; Polychromasia Present
[2019-04-04] MEDS: Normal Saline Flush 10 ML SYR IVP (11:10)
[2019-04-04 11:40] LABS: Abs Immature Grans 0.02 k/cumm (0.0-0.09); Absolute Basophil Count 0.02 k/cumm (0.0-0.2); Absolute Eosinophil Count 0.07 k/cumm (0.0-0.7); Absolute Lymphocyte Count 0.94 k/cumm (1.2-3.4); Absolute Monocyte Count 0.22 k/cumm (0.11-0.7); Absolute Neutrophil Count 2.54 k/cumm (1.2-6.7); Basophils % 0.5; Eosinophils % 1.8; HCT 32.8 % (40.0-50.0); Immature Grans % 0.5; Lymphocytes % 24.7; Mean Corp. HGB Concentration 30.5 g/dL (32.0-36.0); Mean Corpuscular Hemoglobin 22.7 pg (27.0-33.0); Mean Corpuscular Volume 74.5 fL (80-95); Mean Platelet Volume 9.6 fL (8.0-11.0); Monocytes % 5.8; Neutrophils % 66.7; Platelet Count 124 x1000/uL (130-400); RBC Distribution Width 25.1 % (11.8-14.1); White Blood Cell Count 3.81 k/cumm (4.4-10.8)
[2019-04-04 11:59] LABS: Anisocytosis 3+; Diff Comment RBC Morph Reviewed
[2019-04-04 12:00] LABS: Hypochromasia 3+; Microcytosis 3+; Poikilocytes 1+
[2019-04-04 12:10] LABS: ALT 232 U/L (12-78); AST 106 U/L (15-37); Albumin 2.6 g/dL (3.4-5.0); Alkaline Phosphatase 79 U/L (46-116); Anion Gap 7.1 mmol/L (3-11); BUN 10 mg/dL (7-18); Bilirubin, Total 0.3 mg/dL (0.2-1.0); CO2 27.9 mmol/L (21.0-32.0); CREATININE 0.93 mg/dL (0.70-1.30); Calcium 8.1 mg/dL (8.5-10.1); Chloride 100 mmol/L (98-107); Glucose 156 mg/dL (70-100); Sodium 135 mmol/L (136-145); Total Protein 6.6 g/dL (6.4-8.2)
[2019-04-11] MEDS: Normal Saline Flush 10 ML SYR IVP (13:13)
[2019-04-11 13:30] LABS: Absolute Basophil Count 0.02 k/cumm (0.0-0.2); Absolute Eosinophil Count 0.05 k/cumm (0.0-0.7); Absolute Lymphocyte Count 0.63 k/cumm (1.2-3.4); Absolute Monocyte Count 0.19 k/cumm (0.11-0.7); Absolute Neutrophil Count 0.59 k/cumm (1.2-6.7); Basophils % 1.4; Eosinophils % 3.4; HCT 29.9 % (40.0-50.0); HGB 9.2 g/dL (13.5-17.5); Lymphocytes % 42.6; Mean Corp. HGB Concentration 30.8 g/dL (32.0-36.0); Mean Corpuscular Hemoglobin 23.2 pg (27.0-33.0); Mean Corpuscular Volume 75.5 fL (80-95); Mean Platelet Volume 9.4 fL (8.0-11.0); Monocytes % 12.8; Neutrophils % 39.8; Platelet Count 120 x1000/uL (130-400); RBC 3.96 m/cumm (4.50-6.00); RBC Distribution Width 25.2 % (11.8-14.1)
[2019-04-11 13:48] LABS: ALT 199 U/L (12-78); AST 84 U/L (15-37); Albumin 2.8 g/dL (3.4-5.0); Alkaline Phosphatase 91 U/L (46-116); Anion Gap 6.1 mmol/L (3-11); BUN 8 mg/dL (7-18); Bilirubin, Total 0.4 mg/dL (0.2-1.0); CO2 28.9 mmol/L (21.0-32.0); CREATININE 0.82 mg/dL (0.70-1.30); Calcium 8.4 mg/dL (8.5-10.1); Chloride 99 mmol/L (98-107); Glucose 88 mg/dL (70-100); Potassium 4.5 mmol/L (3.5-5.1); Sodium 134 mmol/L (136-145); Total Protein 6.9 g/dL (6.4-8.2)
[2019-04-11 13:59] LABS: Anisocytosis 3+; Diff Comment Diff Reviewed; Hypochromasia 3+; Microcytosis 3+; White Blood Cell Count 1.48 k/cumm (4.4-10.8)
[2019-04-11 14:00] LABS: Poikilocytes 1+
[2019-04-18] MEDS: Normal Saline Flush 10 ML SYR IVP (08:47)
[2019-04-18 09:07] LABS: Abs Immature Grans 0.01 k/cumm (0.0-0.09); Absolute Basophil Count 0.03 k/cumm (0.0-0.2); Absolute Eosinophil Count 0.04 k/cumm (0.0-0.7); Absolute Monocyte Count 0.54 k/cumm (0.11-0.7); Absolute Neutrophil Count 1.91 k/cumm (1.2-6.7); Basophils % 0.9; Eosinophils % 1.2; HCT 34.5 % (40.0-50.0); HGB 10.9 g/dL (13.5-17.5); Immature Grans % 0.3; Mean Corp. HGB Concentration 31.6 g/dL (32.0-36.0); Mean Corpuscular Hemoglobin 24.9 pg (27.0-33.0); Mean Corpuscular Volume 78.9 fL (80-95); Mean Platelet Volume 9.2 fL (8.0-11.0); Monocytes % 16.2; Neutrophils % 57.4; Platelet Count 149 x1000/uL (130-400); RBC 4.37 m/cumm (4.50-6.00); RBC Distribution Width 28.7 % (11.8-14.1); White Blood Cell Count 3.33 k/cumm (4.4-10.8)
[2019-04-18 09:18] LABS: Diff Comment RBC Morph Reviewed
[2019-04-18 09:19] LABS: Anisocytosis 3+; Hypochromasia 2+; Microcytosis 2+; Polychromasia Present
[2019-04-18 09:21] LABS: ALT 78 U/L (12-78); AST 42 U/L (15-37); Alkaline Phosphatase 84 U/L (46-116); Anion Gap 6.7 mmol/L (3-11); BUN 8 mg/dL (7-18); Bilirubin, Total 0.3 mg/dL (0.2-1.0); CO2 28.3 mmol/L (21.0-32.0); CREATININE 0.89 mg/dL (0.70-1.30); Calcium 8.4 mg/dL (8.5-10.1); Chloride 100 mmol/L (98-107); Glucose 149 mg/dL (70-100); Sodium 135 mmol/L (136-145); Total Protein 7.3 g/dL (6.4-8.2)
== END 2019-04-19 23:59 | disposition home or self-care (01) ==
LOC: INF 01:55
PROVIDERS: PCP Internal Medicine; Visit Provider Nurse Practitioner Adult Health
DX: C34.02 Malignant neoplasm of left main bronchus (principal); Z79.899 Other long term (current) drug therapy; Z45.2 Encounter for adjustment and management of vascular access device
CPT/HCPCS: 36591; 80053; 86900; 86901; 84436; 84443; 85025

== ENCOUNTER 2019-05-16 01:20 | Outpatient (RCR) | payer OTHER, SELFPAY ==
[2019-05-02] MEDS: Normal Saline Flush 10 ML SYR IVP (07:47)
[2019-05-02 08:01] LABS: Abs Immature Grans 0.04 k/cumm (0.0-0.09); Absolute Lymphocyte Count 1.08 k/cumm (1.2-3.4); Absolute Monocyte Count 0.88 k/cumm (0.11-0.7); HCT 36.5 % (40.0-50.0); HGB 11.6 g/dL (13.5-17.5); Immature Grans % 1.1; Lymphocytes % 30.9; Mean Corp. HGB Concentration 31.8 g/dL (32.0-36.0); Mean Corpuscular Hemoglobin 26.3 pg (27.0-33.0); Mean Corpuscular Volume 82.8 fL (80-95); Mean Platelet Volume 9.7 fL (8.0-11.0); Monocytes % 25.1; Neutrophils % 42.9; Platelet Count 81 x1000/uL (130-400); RBC 4.41 m/cumm (4.50-6.00); RBC Distribution Width 30.2 % (11.8-14.1)
[2019-05-02 08:22] LABS: ALT 247 U/L (12-78); AST 52 U/L (15-37); Albumin 2.6 g/dL (3.4-5.0); Alkaline Phosphatase 74 U/L (46-116); Anion Gap 7.1 mmol/L (3-11); BUN 19 mg/dL (7-18); Bilirubin, Total 0.6 mg/dL (0.2-1.0); CO2 29.9 mmol/L (21.0-32.0); CREATININE 0.86 mg/dL (0.70-1.30); Calcium 8.5 mg/dL (8.5-10.1); Chloride 100 mmol/L (98-107); FREE T4 1.12 ng/dL (0.76-1.46); Glucose 122 mg/dL (70-100); Potassium 3.5 mmol/L (3.5-5.1); Sodium 137 mmol/L (136-145); Total Protein 6.1 g/dL (6.4-8.2)
[2019-05-02 08:27] LABS: Diff Comment RBC Morph Reviewed
[2019-05-02 08:28] LABS: Anisocytosis 3+; Hypochromasia 2+; Polychromasia Present
[2019-05-02 17:06] LABS: Macrocytosis 2+; Microcytosis 2+
[2019-05-16] MEDS: Normal Saline Flush 10 ML SYR IVP (07:53)
[2019-05-16 08:03] LABS: Abs Immature Grans 0.01 k/cumm (0.0-0.09); Absolute Basophil Count 0.01 k/cumm (0.0-0.2); Absolute Eosinophil Count 0.08 k/cumm (0.0-0.7); Absolute Lymphocyte Count 0.72 k/cumm (1.2-3.4); Absolute Monocyte Count 0.27 k/cumm (0.11-0.7); Absolute Neutrophil Count 2.49 k/cumm (1.2-6.7); Basophils % 0.3; Eosinophils % 2.2; HCT 33.9 % (40.0-50.0); Immature Grans % 0.3; Lymphocytes % 20.1; Mean Corp. HGB Concentration 32.4 g/dL (32.0-36.0); Mean Corpuscular Hemoglobin 28.9 pg (27.0-33.0); Mean Corpuscular Volume 89.2 fL (80-95); Monocytes % 7.5; Neutrophils % 69.6; RBC Distribution Width 30.1 % (11.8-14.1); White Blood Cell Count 3.58 k/cumm (4.4-10.8)
[2019-05-16 08:29] LABS: ALT 51 U/L (12-78); AST 26 U/L (15-37); Alkaline Phosphatase 69 U/L (46-116); Anion Gap 9.9 mmol/L (3-11); BUN 11 mg/dL (7-18); Bilirubin, Total 0.5 mg/dL (0.2-1.0); CO2 27.1 mmol/L (21.0-32.0); CREATININE 0.97 mg/dL (0.70-1.30); Calcium 8.7 mg/dL (8.5-10.1); Chloride 104 mmol/L (98-107); FREE T4 1.21 ng/dL (0.76-1.46); Glucose 140 mg/dL (70-100); Sodium 141 mmol/L (136-145); TSH 12.96 uIU/mL (0.358-3.74); Total Protein 6.7 g/dL (6.4-8.2)
[2019-05-16 08:32] LABS: Anisocytosis 3+; Diff Comment RBC Morph Reviewed; Platelet Count 90 x1000/uL (130-400)
[2019-05-16 08:33] LABS: Poikilocytes 1+
== END 2019-05-19 23:59 | disposition home or self-care (01) ==
LOC: INF 01:20
PROVIDERS: PCP Internal Medicine; Visit Provider Nurse Practitioner Adult Health
DX: C34.02 Malignant neoplasm of left main bronchus (principal); E03.2 Hypothyroidism due to medicaments and other exogenous substances; Z79.899 Other long term (current) drug therapy; Z45.2 Encounter for adjustment and management of vascular access device
CPT/HCPCS: 36591; 80053; 86850; 86900; 86901; 84439; 84443; 85025

== ENCOUNTER 2019-06-06 01:27 | Outpatient (RCR) | payer OTHER, SELFPAY ==
[2019-06-06] MEDS: Normal Saline Flush 10 ML SYR IVP (07:45)
[2019-06-06 08:06] LABS: Abs Immature Grans 0.03 k/cumm (0.0-0.09); Absolute Basophil Count 0.03 k/cumm (0.0-0.2); Absolute Eosinophil Count 0.05 k/cumm (0.0-0.7); Absolute Lymphocyte Count 0.83 k/cumm (1.2-3.4); Absolute Monocyte Count 0.59 k/cumm (0.11-0.7); Basophils % 0.6; Eosinophils % 1.1; HCT 35.1 % (40.0-50.0); HGB 11.9 g/dL (13.5-17.5); Immature Grans % 0.6; Lymphocytes % 17.9; Mean Corp. HGB Concentration 33.9 g/dL (32.0-36.0); Mean Corpuscular Hemoglobin 31.6 pg (27.0-33.0); Mean Corpuscular Volume 93.1 fL (80-95); Monocytes % 12.7; Neutrophils % 67.1; Platelet Count 176 x1000/uL (130-400); RBC 3.77 m/cumm (4.50-6.00); RBC Distribution Width 23.9 % (11.8-14.1); White Blood Cell Count 4.63 k/cumm (4.4-10.8)
[2019-06-06 08:31] LABS: Diff Comment RBC Morph Reviewed
[2019-06-06 08:33] LABS: ALT 28 U/L (12-78); AST 18 U/L (15-37); Alkaline Phosphatase 58 U/L (46-116); Anion Gap 7.4 mmol/L (3-11); BUN 7 mg/dL (7-18); Bilirubin, Total 0.4 mg/dL (0.2-1.0); CO2 28.6 mmol/L (21.0-32.0); CREATININE 0.79 mg/dL (0.70-1.30); Calcium 8.9 mg/dL (8.5-10.1); Chloride 104 mmol/L (98-107); FREE T4 1.37 ng/dL (0.76-1.46); Glucose 125 mg/dL (70-100); Macrocytosis 1+; Microcytosis 2+; Potassium 3.6 mmol/L (3.5-5.1); Sodium 140 mmol/L (136-145); TSH 6.51 uIU/mL (0.358-3.74); Total Protein 6.8 g/dL (6.4-8.2)
== END 2019-06-19 23:59 | disposition home or self-care (01) ==
LOC: INF 01:27
PROVIDERS: PCP Internal Medicine; Visit Provider Nurse Practitioner Adult Health
DX: C34.02 Malignant neoplasm of left main bronchus (principal); Z79.899 Other long term (current) drug therapy; Z45.2 Encounter for adjustment and management of vascular access device
CPT/HCPCS: 36591; 80053; 86900; 86901; 84439; 84443; 85025

== ENCOUNTER 2019-07-18 00:51 | Outpatient (RCR) | payer OTHER, SELFPAY ==
[2019-06-27] MEDS: Normal Saline Flush 10 ML SYR IVP (07:10)
[2019-06-27 07:37] LABS: Abs Immature Grans 0.04 k/cumm (0.0-0.09); Absolute Basophil Count 0.02 k/cumm (0.0-0.2); Absolute Lymphocyte Count 1.28 k/cumm (1.2-3.4); Absolute Monocyte Count 0.74 k/cumm (0.11-0.7); Absolute Neutrophil Count 9.62 k/cumm (1.2-6.7); Basophils % 0.2; Eosinophils % 0.3; HCT 36.4 % (40.0-50.0); HGB 12.3 g/dL (13.5-17.5); Immature Grans % 0.3; Lymphocytes % 10.9; Mean Corp. HGB Concentration 33.8 g/dL (32.0-36.0); Mean Corpuscular Hemoglobin 31.5 pg (27.0-33.0); Mean Corpuscular Volume 93.3 fL (80-95); Mean Platelet Volume 9.3 fL (8.0-11.0); Monocytes % 6.3; Platelet Count 191 x1000/uL (130-400); RBC Distribution Width 17.2 % (11.8-14.1); White Blood Cell Count 11.73 k/cumm (4.4-10.8)
[2019-06-27 08:04] LABS: Absolute Eosinophil Count 0.04 k/cumm (0.0-0.7)
[2019-06-27 08:09] LABS: ALT 36 U/L (12-78); AST 17 U/L (15-37); Albumin 3.1 g/dL (3.4-5.0); Alkaline Phosphatase 52 U/L (46-116); Anion Gap 9.9 mmol/L (3-11); BUN 13 mg/dL (7-18); Bilirubin, Total 0.2 mg/dL (0.2-1.0); CO2 27.1 mmol/L (21.0-32.0); CREATININE 1.07 mg/dL (0.70-1.30); Calcium 8.7 mg/dL (8.5-10.1); Chloride 103 mmol/L (98-107); Glucose 122 mg/dL (70-100); Potassium 3.2 mmol/L (3.5-5.1); Sodium 140 mmol/L (136-145); TSH 2.76 uIU/mL (0.36-3.74); Total Protein 6.9 g/dL (6.4-8.2)
[2019-07-18] MEDS: Normal Saline Flush 10 ML SYR IVP (07:21)
[2019-07-18 07:26] LABS: Abs Immature Grans 0.01 k/cumm (0.0-0.09); Absolute Basophil Count 0.02 k/cumm (0.0-0.2); Absolute Eosinophil Count 0.12 k/cumm (0.0-0.7); Absolute Lymphocyte Count 1.12 k/cumm (1.2-3.4); Absolute Monocyte Count 0.57 k/cumm (0.11-0.7); Absolute Neutrophil Count 6.58 k/cumm (1.2-6.7); Basophils % 0.2; Eosinophils % 1.4; HCT 37.7 % (40.0-50.0); HGB 12.2 g/dL (13.5-17.5); Immature Grans % 0.1; Lymphocytes % 13.3; Mean Corp. HGB Concentration 32.4 g/dL (32.0-36.0); Mean Corpuscular Volume 95.7 fL (80-95); Mean Platelet Volume 9.2 fL (8.0-11.0); Monocytes % 6.8; Neutrophils % 78.2; Platelet Count 184 x1000/uL (130-400); RBC 3.94 m/cumm (4.50-6.00); RBC Distribution Width 15.7 % (11.8-14.1); White Blood Cell Count 8.42 k/cumm (4.4-10.8)
[2019-07-18 07:55] LABS: ALT 26 U/L (16-63); AST 18 U/L (15-37); Albumin 2.9 g/dL (3.4-5.0); Alkaline Phosphatase 59 U/L (46-116); Anion Gap 9.3 mmol/L (3-11); BUN 6 mg/dL (7-18); Bilirubin, Total 0.3 mg/dL (0.2-1.0); CO2 27.7 mmol/L (21.0-32.0); CREATININE 1.11 mg/dL (0.70-1.30); Calcium 8.5 mg/dL (8.5-10.1); Chloride 103 mmol/L (98-107); FREE T4 0.94 ng/dL (0.76-1.46); Glucose 97 mg/dL (70-100); Potassium 3.3 mmol/L (3.5-5.1); Sodium 140 mmol/L (136-145); TSH 22.59 uIU/mL (0.36-3.74); Total Protein 6.6 g/dL (6.4-8.2)
== END 2019-07-20 23:59 | disposition home or self-care (01) ==
LOC: INF 00:51
PROVIDERS: PCP Internal Medicine; Visit Provider Nurse Practitioner Adult Health
DX: C34.02 Malignant neoplasm of left main bronchus (principal); Z79.899 Other long term (current) drug therapy; Z45.2 Encounter for adjustment and management of vascular access device
CPT/HCPCS: 36591; 80053; 86900; 86901; 84439; 84443; 85025

== ENCOUNTER 2019-08-08 01:22 | Outpatient (RCR) | payer OTHER, SELFPAY | END 2019-08-19 23:59 | disposition home or self-care (01) | LOC: INF 01:22 | PROVIDERS: PCP Internal Medicine; Visit Provider Nurse Practitioner Adult Health | DX: R69 Illness, unspecified (principal) ==